=== PATIENT | male | born 2000 | race Caucasian/White ===

== ENCOUNTER 2021-11-17 14:31 | Outpatient (RCR) | payer BC, SELFPAY ==
[2021-11-17 19:43] LABS: Albumin* 4.9 g/dL (3.3-5.0)
[2021-11-17 19:45] LABS: Cholesterol* 230 mg/dL (90-199)
[2021-11-17 19:46] LABS: Alanine Aminotransferase* 45 U/L (4-50); Alkaline Phosphatase* 67 U/L (40-150); Aspartate Amino Transferase* 45 U/L (12-35); Bilirubin Direct* 0.4 mg/dL (0.0-0.5); Bilirubin Total* 1.3 mg/dL (0.1-1.5); Total Protein* 7.6 g/dL (6.0-8.3); Triglycerides* 159 mg/dL (40-149)
[2022-04-26 15:15] LABS: Albumin* 4.9 g/dL (3.3-5.0)
[2022-04-26 15:17] LABS: Cholesterol* 226 mg/dL (90-199); Total Protein* 7.2 g/dL (6.0-8.3)
[2022-04-26 15:18] LABS: Alanine Aminotransferase* 29 U/L (4-50); Alkaline Phosphatase* 61 U/L (40-150); Aspartate Amino Transferase* 39 U/L (12-35); Bilirubin Direct* 0.3 mg/dL (0.0-0.5); Bilirubin Total* 0.9 mg/dL (0.1-1.5); Triglycerides* 136 mg/dL (40-149)
== END 2022-10-20 23:00 | disposition home or self-care (01) ==
LOC: NPINS 14:31
PROVIDERS: PCP Emergency Medicine; Visit Provider Dermatology
DX: L70.0 Acne vulgaris (principal)
CPT/HCPCS: 80076; 82465; 84478

== ENCOUNTER 2021-11-30 10:38 | Outpatient (CLI) | payer BC, SELFPAY ==
[2021-11-30 14:50] LABS: HIV 1/2/P24 Combo Screen* Negative (Negative)
[2021-11-30 17:39] LABS: Hepatitis B Surface Antibody* Positive (Negative)
== END 2021-11-30 10:39 | disposition home or self-care (01) ==
PROVIDERS: PCP Emergency Medicine; Visit Provider Emergency Medicine
DX: Z79.899 Other long term (current) drug therapy (principal)
CPT/HCPCS: 86703; 86706

== ENCOUNTER 2022-03-15 09:56 | Outpatient (CLI) | payer BC, SELFPAY ==
[2022-03-15 14:20] LABS: Creatinine* 0.9 mg/dL (0.5-1.5); Estimated Glomerular Filt Rate 125 ml/min
[2022-03-15 15:38] LABS: Chlamydia DNA Amplified* NOT DETECTED (No Detected); GC DNA Amplified* NOT DETECTED (No Detected)
[2022-03-15 16:14] LABS: HIV 1/2/P24 Combo Screen* Negative (Negative)
[2022-03-15 16:27] LABS: Hepatitis C Virus Antibody* Negative (Negative)
[2022-03-16 01:14] LABS: Chlamydia DNA Amplified* NOT DETECTED (No Detected); GC DNA Amplified* NOT DETECTED (No Detected)
[2022-03-16 01:15] LABS: Chlamydia DNA Amplified* NOT DETECTED (No Detected); GC DNA Amplified* NOT DETECTED (No Detected)
[2022-03-16 23:48] LABS: Rapid Plasma Reagin (RPR) Non Reactive (Non Reactive)
== END 2022-03-15 09:57 | disposition home or self-care (01) ==
PROVIDERS: PCP Emergency Medicine; Visit Provider Emergency Medicine
DX: Z11.3 Encounter for screening for infections with a predominantly sexual mode of transmission (principal); F41.9 Anxiety disorder, unspecified; Z79.899 Other long term (current) drug therapy
CPT/HCPCS: 82565; 86592; 86703; 86803; 87491; 87591

== ENCOUNTER 2022-12-06 10:06 | Outpatient (CLI) | payer BC, SELFPAY | END 2022-12-06 10:07 | disposition home or self-care (01) | LOC: NFLDREF 12-07 08:26 | PROVIDERS: PCP Emergency Medicine; Referring Provider Emergency Medicine; Visit Provider Emergency Medicine | DX: F41.9 Anxiety disorder, unspecified (principal); Z79.899 Other long term (current) drug therapy; Z11.3 Encounter for screening for infections with a predominantly sexual mode of transmission | CPT/HCPCS: 86703 ==

== ENCOUNTER 2023-03-14 09:35 | Outpatient (CLI) | payer BC, SELFPAY | END 2023-03-14 09:36 | disposition home or self-care (01) | LOC: NFLDREF 03-15 11:35 | PROVIDERS: PCP Emergency Medicine; Referring Provider Emergency Medicine; Visit Provider Emergency Medicine | DX: Z11.3 Encounter for screening for infections with a predominantly sexual mode of transmission (principal) | CPT/HCPCS: 82565; 86592; 86703; 86803 ==

== ENCOUNTER 2023-04-25 09:23 | Outpatient (CLI) | payer BC, SELFPAY ==
[2023-04-25 16:38] LABS: Chlamydia DNA Amplified* NOT DETECTED (No Detected); GC DNA Amplified* NOT DETECTED (No Detected)
[2023-04-25 16:43] LABS: Chlamydia DNA Amplified* NOT DETECTED (No Detected); GC DNA Amplified* NOT DETECTED (No Detected)
[2023-04-25 16:44] LABS: Chlamydia DNA Amplified* NOT DETECTED (No Detected); GC DNA Amplified* NOT DETECTED (No Detected)
== END 2023-04-25 09:24 | disposition home or self-care (01) ==
PROVIDERS: PCP Emergency Medicine; Visit Provider Emergency Medicine
DX: Z11.3 Encounter for screening for infections with a predominantly sexual mode of transmission (principal); Z13.6 Encounter for screening for cardiovascular disorders
CPT/HCPCS: 80053; 80061; 87491; 87591

== ENCOUNTER 2023-10-03 10:12 | Outpatient (CLI) | payer BC, SELFPAY | END 2023-10-03 10:13 | disposition home or self-care (01) | PROVIDERS: PCP Emergency Medicine; Visit Provider Emergency Medicine | DX: Z79.899 Other long term (current) drug therapy (principal) | CPT/HCPCS: 80053; 86703 ==

== ENCOUNTER 2023-10-24 15:13 | Outpatient (CLI) | payer BC, SELFPAY ==
[2023-10-24 23:02] LABS: Chlamydia DNA Amplified* NOT DETECTED (No Detected); GC DNA Amplified* NOT DETECTED (No Detected)
[2023-10-24 23:03] LABS: Chlamydia DNA Amplified* NOT DETECTED (No Detected); GC DNA Amplified* NOT DETECTED (No Detected)
== END 2023-10-24 15:14 | disposition home or self-care (01) ==
PROVIDERS: PCP Emergency Medicine; Visit Provider Family Medicine
DX: Z11.3 Encounter for screening for infections with a predominantly sexual mode of transmission (principal)
CPT/HCPCS: 87491; 87591

== ENCOUNTER 2023-12-31 10:27 | Outpatient (CLI) | payer BC, SELFPAY | END 2023-12-31 10:28 | disposition home or self-care (01) | LOC: NFLDREF 01-04 15:52 | PROVIDERS: PCP Emergency Medicine; Referring Provider Emergency Medicine; Visit Provider Emergency Medicine | DX: Z79.899 Other long term (current) drug therapy (principal) | CPT/HCPCS: 86703 ==

== ENCOUNTER 2024-04-10 09:13 | Outpatient (CLI) | payer BC, SELFPAY ==
[2024-04-10 15:42] LABS: Chlamydia DNA Amplified* NOT DETECTED (No Detected); GC DNA Amplified* NOT DETECTED (No Detected)
[2024-04-10 15:42] LABS: Chlamydia DNA Amplified* NOT DETECTED (No Detected); GC DNA Amplified* NOT DETECTED (No Detected)
== END 2024-04-10 09:14 | disposition home or self-care (01) ==
PROVIDERS: PCP Emergency Medicine; Visit Provider Emergency Medicine
DX: Z79.899 Other long term (current) drug therapy (principal); Z11.3 Encounter for screening for infections with a predominantly sexual mode of transmission
CPT/HCPCS: 80048; 80076; 86592; 86703; 86803; 87491; 87591

== ENCOUNTER 2024-09-16 09:35 | Outpatient (CLI) | payer BC, SELFPAY | END 2024-09-16 09:36 | disposition home or self-care (01) | LOC: NFLDREF 09-18 17:37 | PROVIDERS: PCP Emergency Medicine; Referring Provider Emergency Medicine; Visit Provider Emergency Medicine | DX: E78.2 Mixed hyperlipidemia (principal); Z79.899 Other long term (current) drug therapy | CPT/HCPCS: 80061; 86703 ==

== ENCOUNTER 2025-03-31 11:16 | Outpatient (CLI) | payer BC, SELFPAY | END 2025-03-31 11:17 | disposition home or self-care (01) | LOC: NFLDREF 04-06 18:44 | PROVIDERS: PCP Physician Assistant Medical; Referring Provider Physician Assistant Medical; Visit Provider Physician Assistant Medical | DX: F41.9 Anxiety disorder, unspecified (principal); E78.2 Mixed hyperlipidemia; Z13.9 Encounter for screening, unspecified | CPT/HCPCS: 80053; 84443; 86703 ==